=== PATIENT | male | born 1995 | race Caucasian/White ===

== ENCOUNTER → 2018-01-18 | Outpatient (REF) | payer OTHER ==
[2018-01-18 12:15] LABS: CHOLESTEROL LEVEL 210 MG/DL (<200); GLUCOSE, FASTING 88 MG/DL (70-100); HDL CHOLESTEROL 60 MG/DL (>40); LDL CHOLESTEROL 129.2 MG/DL (<100); NON-HDL-C 150 MG/DL; TRIGLYCERIDES LEVEL 104 MG/DL (<150)
== END ==
LOC: M LABDRAW1 10:11
DX: Z00.00 Encounter for general adult medical examination without abnormal findings (principal)
CPT/HCPCS: 82947